=== PATIENT | male | born 1985 | race Hispanic/Latino ===

== ENCOUNTER 2023-03-09 11:50 | Emergency (ER) | payer OTHER ==
[~2023-03-09] VITALS: Ht 175.3 cm; Wt 77.1 kg
[2023-03-09] MEDS ORDERED: IBUPROFEN 800 MG TAB PO ONE (15:00)
[2023-03-09] MEDS ORDERED: CYCLOBENZAPRINE HCL 10 MG TABLET PO ONE (15:00)
[2023-03-09] MEDS ORDERED: CYCL10TA16 PO (16:35)
[2023-03-09] MEDS ORDERED: IBUP-2077 PO (16:35)
[2023-03-09 16:41] VITALS: BP 127/68; PULSE 82; RESP 18; O2SAT 99
== END 2023-03-09 16:47 | disposition home or self-care (01) ==
LOC: EDH 11:50
DX: S30.0XXA Contusion of lower back and pelvis, initial encounter (principal); Z88.2 Allergy status to sulfonamides; W10.8XXA Fall (on) (from) other stairs and steps, initial encounter; Y93.89 Activity, other specified; Y92.89 Other specified places as the place of occurrence of the external cause; Y99.8 Other external cause status
CPT/HCPCS: 71100; 72070; 72170

== ENCOUNTER 2023-04-03 06:03 | Emergency (ER) | payer OTHER ==
[~2023-04-03] VITALS: Ht 188 cm; Wt 130.2 kg
[~2023-04-03 06:03] MED LIST: CYCL10TA16 PO; IBUP-2077 PO
[2023-04-03 07:40] LABS: RAPID GROUP A STREP negative (NEGATIVE)
[2023-04-03 07:49] LABS: COVID19 (SARS ANTIGEN RAPID) PRESUMPTIVE NEGATIVE (NEGATIVE); INFLUENZA TYPE A Negative For Type A (NEGATIVE); INFLUENZA TYPE B Negative For Type B (NEGATIVE)
[2023-04-03 08:12] LABS: EOSINOPHILS # (AUTO) 0.02 K/uL (0.00-0.70); EOSINOPHILS % (AUTO) 0.8 % (0.0-8.0); HEMATOCRIT 26.9 % (42-54); IMMATURE GRANULOCYTE ABSOLUTE 0.02 K/uL (0-1); LYMPHOCYTES # (AUTO) 0.3 K/uL (1.0-4.8); LYMPHOCYTES % (AUTO) 10.9 % (21.0-51.0); MEAN CORPUSCULAR HEMOGLOBIN 39.1 pg (27.0-33.0); MEAN CORPUSCULAR HGB CONC 33.5 g/dL (32.0-36.0); MONOCYTES # (AUTO) 0.2 K/uL (0.1-1.0); MONOCYTES % (AUTO) 7.4 % (3.0-13.0); NEUTROPHILS # (AUTO) 2.1 K/uL (1.8-7.7); NEUTROPHILS % (AUTO) 80.1 % (40.0-77.0); PLATELET COUNT (AUTO) 143 K/uL (130-400); RED CELL DISTRIBUTION WIDTH 11.9 % (11.0-15.5); WHITE BLOOD COUNT (AUTO) 2.6 K/uL (4.8-10.8)
[2023-04-03 08:42] LABS: ALBUMIN 3.6 g/dL (3.5-5.0); BILIRUBIN,TOTAL 3.5 mg/dL (0.2-1.0); CREATININE 0.7 mg/dL (0.5-1.5); POTASSIUM 3.5 mmol/L (3.5-5.1)
[2023-04-03 11:21] LABS: LYMPHOCYTES % (MANUAL) 7 % (22-44); MAN.DIFF COMMENT-IMPRESSION MANUAL DIFFERENTIAL; MONOCYTES % (MANUAL) 5 % (2-9); PLATELET MORPHOLOGY COMMENT ADEQUATE; SEGMENTED NEUTROPHILS % 88 % (40-70); TOTAL CELLS COUNTED 100
[2023-04-03 11:28] LABS: B-TYPE NATRIURETIC PEPTIDE 39 pg/mL (0-100)
[2023-04-03] MEDS ORDERED: IPRATROPIUM/ALBUTEROL SULFATE 3 ML SOLUTION IH ONE (12:00)
[2023-04-03 12:01] VITALS: PULSE 79; RESP 18
[2023-04-03] MEDS ORDERED: ALBUHFA IH (12:31)
[2023-04-03 12:53] VITALS: BP 132/77; PULSE 89; RESP 18; O2SAT 97
== END 2023-04-03 12:56 | disposition home or self-care (01) ==
LOC: EDH 06:03
DX: J98.8 Other specified respiratory disorders (principal); Z20.822 Contact with and (suspected) exposure to COVID-19; Z90.49 Acquired absence of other specified parts of digestive tract; Z79.899 Other long term (current) drug therapy; Z88.2 Allergy status to sulfonamides
CPT/HCPCS: 36415; 71045; 80053; 82550; 83880; 84484; 85025; 87426; 87804; 87880; 93005; 94640

== ENCOUNTER 2023-08-11 08:49 | Emergency (ER) | payer OTHER ==
[~2023-08-11] VITALS: Ht 185.4 cm; Wt 131.1 kg
[~2023-08-11 08:49] MED LIST changes: +ALBUHFA IH
[2023-08-11] MEDS: IBUPROFEN 600 MG TABLET PO ONE (11:23)
[2023-08-11] MEDS: CLINDAMYCIN 150 MG CAP PO ONE (11:23)
[2023-08-11] MEDS: PREDNISONE 20 MG TABLET PO ONE (11:23)
[2023-08-11] MEDS ORDERED: MUPIROCIN OINTMENT 22 GM TUBE TP SCH (11:30)
[2023-08-11] MEDS: MUPIROCIN OINTMENT 22 GM TUBE TP ONE (11:56)
[2023-08-11] MEDS ORDERED: MUPI22OI2 TP (11:57)
[2023-08-11] MEDS ORDERED: CLIN-141 PO (11:57)
[2023-08-11] MEDS: FLUORESCEIN SODIUM 1 STRIP STRIP ONE (12:31)
[2023-08-11] MEDS: TETRACAINE HCL 0.5% 4 ML OPHTH SOLN ONE (12:31)
[2023-08-11 13:13] VITALS: BP 138/89; PULSE 78; RESP 20; O2SAT 99
== END 2023-08-11 13:14 | disposition home or self-care (01) ==
LOC: EDH 08:49
DX: L03.213 Periorbital cellulitis (principal); L25.3 Unspecified contact dermatitis due to other chemical products; D64.9 Anemia, unspecified; Z79.899 Other long term (current) drug therapy; Z90.49 Acquired absence of other specified parts of digestive tract; Z88.2 Allergy status to sulfonamides

== ENCOUNTER 2024-09-25 07:41 | Emergency (ER) | payer SELFPAY ==
[~2024-09-25] VITALS: Ht 182.9 cm; Wt 122.5 kg
[~2024-09-25 07:41] MED LIST changes: +CLIN-141 PO; +MUPI22OI2 TP
[2024-09-25 07:51] VITALS: BP 151/113; PULSE 88; RESP 18; TEMP 98.8; O2SAT 98
[2024-09-25] MEDS ORDERED: METH-662 PO (08:50)
[2024-09-25] MEDS ORDERED: NAPR-1194 PO (08:50)
--- NOTE | 2024-09-25 08:50 | ERN ---
General Chief Complaint: Hip Pain/Injury Stated Complaint: Sacral pain Time Seen by MD: 07:53 Source: patient History of Present Illness Initial Comments Patient is a 39-year-old male coming in to be evaluated for coccyx pain. Patient states he was walking fell down landed in his buttocks. Patient states that the pain is intense and is more painful when he sits. Allergies: Coded Allergies: Sulfa (Sulfonamide Antibiotics) (Unverified Allergy, Unknown, 03/09/23) Home Meds Active Scripts Mupirocin (Mupirocin Ointment) 2 % Oint, 0.5 INCH TP TID, #15 G Prov:KODY ALVARADO [facility] 08/11/23 Clindamycin HCl (Clindamycin HCl) 300 Mg Capsule, 1 CAP PO QID for 10 Days, #40 CAP 0 Refills Prov:KODY ALVARADO [facility] 08/11/23 Albuterol Sulfate (Ventolin Hfa/Proventil Hfa/Proair Hfa) 90 Mcg Puff, 1-2 PUFF IH Q4H PRN for SOB or Congestion for 5 Days, #1 INH 0 Refills PHARMACY TO DISPENSE 1 INHALER FOR USE Prov:ROMÁN BRADFORD MD 04/03/23 Ibuprofen (Ibuprofen 800 mg Tab) 800 Mg Tab, 800 MG PO Q8H PRN for fever or pain, #30 TAB 0 Refills Prov:CATHERINE TOMAS NP 03/09/23 Cyclobenzaprine HCl (Flexeril) 10 Mg Tab, 10 MG PO TID for muscle sstiffness, #14 TAB 0 Refills Prov:CATHERINE TOMAS NP 03/09/23 Past Medical History Past Medical History: No Pertinent History Past Surgical History: None Social History Social History: Lives with family ROS Dictation CONSTITUTIONAL: No chills, no fever, no weakness, no diaphoresis, no malaise. HEAD/FACE: No signs of trauma. EENT: No eye pain, no blurred vision, no tearing, no double vision, no ear pain, no ear discharge, no nose pain, no nasal congestion, no throat pain, no throat swelling, no mouth pain. RESPIRATORY: No cough, no orthopnea, no SOB, no stridor, no wheezing. CARDIOVASCULAR: No chest pain, no edema, no palpitations, no syncope. GASTROINTESTINAL/ABDOMINAL: No abdominal pain, no constipation, no diarrhea, no nausea, no vomiting. GENITOURINARY: No abnormal discharge, no dysuria, no frequent urination, no hematuria. No complaints of pain in the genitals. MUSCULOSKELETAL: No back pain, no gout, no joint pain, no joint swelling, no muscle pain, no muscle stiffness, no neck pain. INTEGUMENTARY: No change in color, no change in hair/nails, no dryness, no lesion, no lumps, no rash. NEUROLOGICAL/PSYCH: No anxiety, not depressed, no emotional problem, no headache, no numbness, no pre-existing deficit, no history of seizures, no tremors, no weakness. HEMATOLOGIC/LYMPHATIC: Not anemic, no history of blood clots, no apparent bleeding, no bruising, glands not swollen. All Systems Negative, Except as Noted. Physical Exam Physical Exam Dictation VITAL SIGNS: Reviewed. GENERAL APPEARANCE: Alert, oriented x3, no acute distress, obese. HEAD AND FACE: Non-traumatic. EYES: PERRL, pink conjunctivas, eyelid no trauma, anterior chamber clear. EARS: Pinnas intact and no signs of trauma or erythema. Ear canals clear and no discharge. TMs no erythema. NOSE: No discharge, no bleeding. OROPHARYNX: Mouth normal, teeth no caries, tongue pink. Pharynx clear, no erythema. Tonsils no exudates, no abscesses noted. Mucous membrane moist. NECK: Supple, non-tender, no thyromegaly, no masses, no JVD, no bruits. BREAST: Deferred. CHEST: No tenderness, no crepitus, no paradoxical movement, no retractions. LUNGS: Clear, well-ventilated, symmetric, no rales, no wheezing, no rhonchi, no stridor, good breath sounds bilaterally. HEART: Regular rate, regular rhythm, no murmur, no gallops. VASCULAR: No peripheral edema. ABDOMEN: Soft, positive bowel sounds, nondistended, no guarding, nontender, no rebound, no masses no hepatomegaly, no splenomegaly, no Saavedra's sign, no hernias. RECTAL: Deferred. GENITAL: Deferred. NEUROLOGICAL: Normal speech, gross motor function intact, gross sensory function intact. MUSCULOSKELETAL: Neck nontender, full range of motion, coccyx pain EXTREMITIES: Nontender, full range of motion. SKIN: Color pink, dry, no turgor, no rash, no lacerations, no abrasions, no contusions. LYMPHATICS: Deferred. Results Laboratory and Microbiology Labs Reviewed?: Yes EKG/XRAY/US/CT/MRI X-RAY Comment Sacral coccyx x-ray- coccyx fracture MDM MDM: Differential diagnosis: Coccyx fracture, fall, tail bone contusion Rationale: Tests considered and ordered secondary to shared decision making include: Previous outside records reviewed: Old ER visits. Risk of complication and/or morbidity or mortality of patient management: None Medications-Per medication reconciliation Patient is a 39-year-old male coming in to be evaluated through he had a fall earlier today. Patient states that he was stepping over a dog and slipped landing on his buttocks. X-ray confirms a coccyx fracture. Patient will be discharged in stable condition I did advised him appropriate follow up with PCP and hiv prevention specialist for ongoing evaluation and management. ED Course Orders Procedure Category Date Status Time Sacrum/Coccyx 2+Vws RAD 09/25/24 Taken 08:10 Ketorolac PHA 09/25/24 Complete Tromethamine 30mg/Ml 08:30 Orphenadrine Citrate PHA 09/25/24 Complete (Norflex) 08:30 Current Medications Medications (Trade) Dose Ordered Sig/Priscila Route PRN Reason Start Time Stop Time Status Last Admin Dose Admin Ketorolac Tromethamine (toRADol) 30 mg ONCE ONCE IM 09/25/24 08:30 09/25/24 08:31 DC Orphenadrine Citrate (Norflex) 60 mg ONCE ONCE IM 09/25/24 08:30 09/25/24 08:31 DC Vital Signs Date Time Temp Pulse Resp B/P (MAP) Pulse Ox O2 Delivery O2 Flow Rate FiO2 09/25/24 07:51 98.8 88 18 151/113 98 Room Air* 0 21 09/25/24 07:47 98.8 88 18 151/113 Room Air DX & DISP Disposition: Discharge Departure Impression: Primary Impression: Fractured coccyx Condition: Stable Scripts Methocarbamol (Robaxin) 750 Mg Tab 1 TAB PO BID for 7 Days, #14 TAB 0 Refills Prov: JZAMIN TARIQ MD 09/25/24 Naproxen (Naproxen) 500 Mg Tablet 1 TAB PO BID for pain for 7 Days, #14 TAB 0 Refills Prov: JAZMIN TARIQ MD 09/25/24 Additional Instructions: FOLLOW-UP WITH PRIMARY CARE PROVIDER IN 1 TO 2 DAYS. TAKE MEDICATIONS DIRECTED HERE IN THE EMERGENCY ROOM. OKAY TO CONTINUE HOME MEDICATIONS UNLESS OTHERWISE DISCUSSED DURING YOUR VISIT IN THE EMERGENCY ROOM TODAY. RETURN TO YOUR NEAREST EMERGENCY ROOM IF SYMPTOMS WORSEN OR IF THERE IS NO IMPROVEMENT. CALL 911 IF YOU NEED IMMEDIATE ASSISTANCE. TAKE TYLENOL [id number] NEEDED AND IF NO CONTRAINDICATIONS ARE PRESENT. INCREASE ORAL HYDRATION. A WOUND CULTURE OR URINE CULTURE WAS ORDERED HERE IN THE EMERGENCY ROOM DEPARTMENT PLEASE FOLLOW-UP WITH PRIMARY CARE PROVIDER AND ADVISE THEM TO GET REPEAT PORTS FROM OUR FACILITY. IF YOU HAD ANY ANITRA WRAP/SPLINTS THAT WERE APPLIED HERE, PLEASE DO NOT REMOVE THEM UNTIL YOU SEE YOUR PRIMARY CARE OR SPECIALTY. Referrals: Referrals: SELF,REFERRAL (PCP) KOBY VANCE MD, LUIS A MD Time of Disposition: 08:47 JAZMIN TARIQ MD Sep 25, 2024 08:50
--- NOTE | 2024-09-25 09:08 | HMCIMG ---
SACRUM/COCCYX 2+VWS HISTORY: Status post fall COMPARISON: None TECHNIQUE: 3 images of sacrum and coccyx FINDINGS: Irregularity is seen involving the sacrococcygeal junction suggestive of stress fracture. Degenerative changes are seen. IMPRESSION: 1. Findings as described above.
[2024-09-25] MEDS: ORPHENADRINE 60MG/2ML IM ONE (09:21)
[2024-09-25] MEDS: ketOROlac 30MG VIAL (30MG/ML) IM ONE (09:22)
== END 2024-09-25 09:58 | disposition home or self-care (01) ==
LOC: EDH 07:41
DX: S32.2XXA Fracture of coccyx, initial encounter for closed fracture (principal); Z88.2 Allergy status to sulfonamides; W18.39XA Other fall on same level, initial encounter; Y93.01 Activity, walking, marching and hiking; Y92.89 Other specified places as the place of occurrence of the external cause; Y99.8 Other external cause status
CPT/HCPCS: 99284; 72220; 96372 ×2; J1885; J2360